=== PATIENT | male | born 1980 | race Caucasian/White ===

== ENCOUNTER 2017-06-20 19:16 | Emergency (ER) | payer OTHER ==
[~2017-06-20] VITALS: Ht 167.6 cm; Wt 123.6 kg
[~2017-06-20 19:16] MED LIST: HYDR10FO RC; HYDR1TAB69 PO; NUPERCAINAL RC
[2017-06-20 19:20] VITALS: BP 171/106; PULSE 93; RESP 16; O2SAT 99
--- NOTE | 2017-06-20 20:39 | ED.REPORT ---
HPI-Back Pain Under 40 Date of Service Jun 20, 2017 ED Provider: Dr. Evans The pt is a 36 y/o male with no pertinent hx who presents to the ED complaining of back pain, worse on the right side, onset 3 days ago. The pt has had back pain for over a month. He experienced significant relief after a few sessions with chiropractor until the sudden increase in pain 3 days ago. Associated sx include difficulty walking 2 days ago and intermittent mild numbness in lower extremities. He took a couple of Aleve with no relief. His pain is exacerbated with breathing and almost every movement.He denies incontinence, decreased sensation in legs and perineal area, and abdominal pain. Nursing Notes Stated Complaint: BACK PAIN Chief Complaint: Back Pain or Injury Nursing Notes Reviewed: Yes Allergies: Coded Allergies: Penicillins (Verified Allergy, Severe, PRURITIS, 06/20/17) Sulfa (Sulfonamide Antibiotics) (Verified Allergy, Severe, PRURITIS, ) Scheduled ([Nupercainal Oint]) 1 % RC BID HYDROCORTISONE/PRAM-Expunged Drug, Do Not Corey (PROCTOFOAM-HC 1%-1%-Expunged Drug , Do Not Corey) 10 Gm Foam 10 GM RC BID Hydrocod/APAP-Expunged, Do Not Renew! (Hydrocod/APAP 5/500-Expunged, Do Not Renew!) 1 Each Tablet 1-2 EACH PO Q 4-6HRS PRN Scheduled PRN Cyclobenzaprine (Cyclobenzaprine) 10 Mg Tablet 10 MG PO TID PRN PRN Spasm Naproxen (Naproxen) 500 Mg Tab 500 MG PO BID PRN PRN For Pain General Time Seen by MD: 20:38 Chief Complaint Back pain Hx Obtained From: Patient Arrived By: Walk-in Sudden in Onset?: Yes Location: : Perispinal lumbar Quality: Painful Radiation: : Does not radiate Severity: Current: Severe Severity: Maximum: Severe Recent Healthcare: No recent doctor visit Past Medical History Past Medical History none reported Past Surgical History none reported Smoking History Current Every Day Smoker Social History Alcohol Use: Denies alcohol use Drug Use: Denies drug use Other Social History: Good social support, Ambulatory Status Independent Review of Systems Reports; difficulty walking Denies: decreased sensation in legs and perineal area GI: Denies: Abdominal pain Male: Denies Incontinence Musculoskeletal: Reports: Back pain Neurologic: Reports: Numbness (intermittent mild numbness in lower extremities) Complete sys rev & neg: except as marked. Physical Exam Initial Vital Signs Vital Signs (First) Date Time Temp Pulse Resp B/P Pulse Ox O2 Delivery O2 Flow Rate FiO2 06/20/17 19:20 36.7 93 16 171/106 99 Room Air Initial VS: Reviewed Head / Eyes: Atraumatic, Normocephalic Neck: Supple, Non-tender, Full range of motion Respiratory: No respiratory distress Cardiovascular: Intact distal pulses Abdomen / GI: Soft, Non-tender, No guarding, No rebound, No distention Extremities: Vascular intact, Neuro intact, No swelling, No tenderness Skin: Warm, Dry, No cyanosis General/Constitutional: Awake, Alert, Well appearing, Cooperative Distress / Hydration: Positive: Distress mild Back: Atraumatic Tenderness and muscle spasm of left perilumbar area. Neuro, motor and vascularly intact. Neurologic: Oriented X3, Speech NL, No motor deficits, No sensory deficits Lower Extremity / Pelvis / MS: Atraumatic, Full range of motion, No swelling, Non-tender, No deformity, Neurologic intact, Vascular intact Re-Eval/Medical Decision Med Decision/Clinical Course She presents with musculoskeletal back pain, which is not midline, there are no persistent radicular symptoms, he is neurovascularly intact. He is hypertensive however I believe this is a pain response rather than an indication of a vascular emergency. Pain localizes to the right paralumbar area, symptoms are related to movement. Recommend NSAIDs, Tylenol, cyclobenzaprine and close outpatient follow-up. Return and follow-up precautions given. Re-Evaluation/Progress : Time of Eval: 20:50 Re-Evaluation/Progress Note: Rechecked pt. Discussed diagnosis and plan to discharge. Pt understands and agrees with the plan. F/U instruction and RTER warning given. All questions addressed. Counseled Regarding: Diagnosis, Need for follow-up, When/why to return to ED Discharge & Departure Impression: Primary Impression: Lumbar strain Disposition: Home All VS Reviewed: Yes Condition: Stable Patient Instructions: Lumbar Radiculopathy (ED) Additional Instructions: Thank you for entrusting us with your care today. Take Naprosyn twice a day. Take Cyclobenzaprine 3 times a day Take Tylenol three times a day Rest and apply ice packs to the area. You should follow up with a primary care provider for further evaluation. Referral provided below. Return to the emergency department in case of lack of sensation in your legs, paralysis, incontinence or any new or other concerning symptoms. Referrals: Chuckie Mueller Attestation Portions of this note were transcribed by Sacha Dill. I,, personally performed the history,physical exam and medical decision-making;I reviewed and confirmed the accuracy of the information in the transcribed note. Signed by Rosaline Nevarez. 06/20/17 copies to: Chuckie Mueller Timothy S DO Jun 20, 2017 20:38 Sacha Dill Jun 20, 2017 20:50
[2017-06-20] MEDS ORDERED: NPR500T PO (21:03)
[2017-06-20] MEDS ORDERED: CYCL10TA9 PO (21:03)
== END 2017-06-20 21:14 | disposition home or self-care (01) ==
LOC: SED 19:16
DX: S39.012A Strain of muscle, fascia and tendon of lower back, initial encounter (principal); X50.9XXA Other and unspecified overexertion or strenuous movements or postures, initial encounter; Y93.89 Activity, other specified; Y92.89 Other specified places as the place of occurrence of the external cause; Y99.8 Other external cause status; F17.200 Nicotine dependence, unspecified, uncomplicated; Z88.0 Allergy status to penicillin; Z88.2 Allergy status to sulfonamides